=== PATIENT | female | born 1955 | race African-American/Black ===

== ENCOUNTER 2020-10-06 16:00 | Inpatient (IN) | payer OTHER, MEDICARE ==
[~2020-10-06] VITALS: Ht 167.6 cm; Wt 98.4 kg
[~2020-10-06 16:00] MED LIST: ASPI-1497 PO; DONE10TA36 PO; ESCI10TA PO; HYDR25TA PO; LISI-186 PO; METO-411 PO
[2020-10-06] MEDS ORDERED: SODIUM CHLORIDE 0.9% 1,000 ML IV ONE (17:00)
[2020-10-06 17:14] LABS: BASOPHILS % 0.4 % (0.0-2.0); EOSINOPHILS % 1.2 % (0.0-5.0); HEMATOCRIT. 45.4 % (36.0-48.0); HEMOGLOBIN. 14.7 g/dL (12.0-16.0); LYMPHOCYTES % 35.4 % (20.0-50.0); MEAN CORPUSCULAR HEMOGLOBIN 27.1 pg (28.0-32.0); MEAN CORPUSCULAR VOLUME 83.6 fL (81.0-99.0); MEAN PLATELET VOLUME 10.6 fl (7.4-10.4); MONOCYTES % 8.5 % (2.0-8.0); NEUTROPHILS % 54.5 % (40.0-76.0); PLATELET 144 x1000/uL (130-400); RED BLOOD CELL COUNT 5.42 mill/uL (4.2-5.4); RED CELL DISTRIBUTION WIDTH 16.8 % (11.6-14.6)
[2020-10-06 17:17] LABS: CHLORIDE 101 mEq/L (98-107)
[2020-10-06 17:24] LABS: INR 1.1; PROTHROMBIN TIME 11.4 sec (9.6-11.0)
[2020-10-06] MEDS ORDERED: POTASSIUM CHLORIDE INJ 40 MEQ in DEXT 5% WATER 500 ML IV ONE (17:45)
[2020-10-06] MEDS ORDERED: ONDANSETRON HCL 4MG/2ML INJ IV PRN (23:45)
[2020-10-07] MEDS ORDERED: LORAZEPAM 2MG/ML CPJ IV PRN (16:30)
[2020-10-07 16:57] VITALS: BP 150/96
[2020-10-07 20:00] VITALS: BP 139/101
[2020-10-07] MEDS: HALOPERIDOL LACTATE 5MG/ML VIAL IM PRN (20:19)
[2020-10-08 08:00] VITALS: BP 125/80
[2020-10-08 08:28] LABS: BASOPHILS % 0.4 % (0.0-2.0); EOSINOPHILS % 1.1 % (0.0-5.0); HEMATOCRIT. 41.9 % (36.0-48.0); HEMOGLOBIN. 13.7 g/dL (12.0-16.0); LYMPHOCYTES % 20.4 % (20.0-50.0); MEAN CORPUSCULAR HEMOGLOBIN 27.7 pg (28.0-32.0); MEAN CORPUSCULAR VOLUME 84.5 fL (81.0-99.0); MEAN PLATELET VOLUME 10.5 fl (7.4-10.4); MONOCYTES % 12.9 % (2.0-8.0); NEUTROPHILS % 65.2 % (40.0-76.0); PLATELET 122 x1000/uL (130-400); RED BLOOD CELL COUNT 4.96 mill/uL (4.2-5.4)
[2020-10-08 08:50] LABS: CHLORIDE 105 mEq/L (98-107)
[2020-10-08 12:00] VITALS: BP 104/64
[2020-10-08] MEDS: HALOPERIDOL LACTATE 5MG/ML VIAL IM PRN ×2 (13:53→22:25)
[2020-10-08] MEDS ORDERED: POTASSIUM CHLORIDE 20MEQ TABLET SR PO NR (14:30)
[2020-10-08 16:00] VITALS: BP 137/74
[2020-10-08 20:00] VITALS: BP 121/80
[2020-10-09] VITALS: BP 130/85
[2020-10-09 04:00] VITALS: BP 125/80
[2020-10-09 08:00] VITALS: BP 115/86
[2020-10-09] MEDS: HALOPERIDOL LACTATE 5MG/ML VIAL IM PRN (11:15)
[2020-10-09 12:00] VITALS: BP 108/71
[2020-10-09 16:00] VITALS: BP 121/78
[2020-10-09 20:00] VITALS: BP 129/88
[2020-10-10] VITALS: BP 134/86
[2020-10-10 04:00] VITALS: BP 126/82
[2020-10-10 08:00] VITALS: BP 103/73
[2020-10-10 12:00] VITALS: BP 128/88
[2020-10-10 16:00] VITALS: BP 126/81
[2020-10-10 20:00] VITALS: BP 120/81
[2020-10-11] VITALS: BP 122/87
[2020-10-11 04:00] VITALS: BP 136/87
[2020-10-11 08:00] VITALS: BP 110/65
[2020-10-11 12:00] VITALS: BP 118/70
[2020-10-11 16:00] VITALS: BP 114/85
[2020-10-11 20:00] VITALS: BP 145/87
[2020-10-11] MEDS: HALOPERIDOL LACTATE 5MG/ML VIAL IM PRN (20:21)
[2020-10-12] VITALS: BP 139/83
[2020-10-12 04:00] VITALS: BP_SYST 118; BP_SYST 135; BP_DIAS 83; BP_DIAS 90
[2020-10-12 08:00] VITALS: BP 147/90
[2020-10-12 12:00] VITALS: BP 150/90
[2020-10-12 16:00] VITALS: BP 136/76
[2020-10-12 20:00] VITALS: BP 118/83
[2020-10-13] VITALS: BP 145/96
[2020-10-13 04:00] VITALS: BP 131/90
[2020-10-13 08:00] VITALS: BP 125/89
[2020-10-13 12:00] VITALS: BP 129/88
[2020-10-13 16:00] VITALS: BP 117/81
[2020-10-13 17:58] LABS: BASOPHILS % 0.4 % (0.0-2.0); EOSINOPHILS % 1.9 % (0.0-5.0); HEMATOCRIT. 42.2 % (36.0-48.0); HEMOGLOBIN. 13.2 g/dL (12.0-16.0); LYMPHOCYTES % 27.4 % (20.0-50.0); MEAN CORPUSCULAR HEMOGLOBIN 26.6 pg (28.0-32.0); MEAN PLATELET VOLUME 9.8 fl (7.4-10.4); MONOCYTES % 11.4 % (2.0-8.0); NEUTROPHILS % 58.9 % (40.0-76.0); PLATELET 100 x1000/uL (130-400); RED BLOOD CELL COUNT 4.96 mill/uL (4.2-5.4); RED CELL DISTRIBUTION WIDTH 17.1 % (11.6-14.6)
[2020-10-13] MEDS: ACETAMINOPHEN 325MG TABLET PO PRN (18:06)
[2020-10-13 18:14] LABS: CHLORIDE 109 mEq/L (98-107)
[2020-10-13 20:00] VITALS: BP 129/83
[2020-10-13] MEDS: HALOPERIDOL LACTATE 5MG/ML VIAL IM PRN (21:12)
[2020-10-14] VITALS: BP 129/83
[2020-10-14 04:00] VITALS: BP 140/90
[2020-10-14 08:00] VITALS: BP 128/92
[2020-10-14 12:00] VITALS: BP 138/90
[2020-10-14 16:00] VITALS: BP_SYST 117; BP_SYST 135; BP_DIAS 74; BP_DIAS 80
[2020-10-14 20:00] VITALS: BP 122/77
[2020-10-15] VITALS: BP 114/81
[2020-10-15] MEDS: HALOPERIDOL LACTATE 5MG/ML VIAL IM PRN (01:02)
[2020-10-15 04:00] VITALS: BP 118/85
[2020-10-15 08:00] VITALS: BP 122/88
[2020-10-15 12:00] VITALS: BP 133/74
[2020-10-15 16:00] VITALS: BP 115/80
[2020-10-15 20:00] VITALS: BP 129/72
[2020-10-16] VITALS: BP 129/83
[2020-10-16 04:00] VITALS: BP 142/92
[2020-10-16 08:00] VITALS: BP 128/74
[2020-10-16 12:00] VITALS: BP 127/83
[2020-10-16 16:00] VITALS: BP 125/74
[2020-10-16 20:00] VITALS: BP 135/86
[2020-10-16] MEDS: HALOPERIDOL LACTATE 5MG/ML VIAL IM PRN (21:45)
[2020-10-17] VITALS: BP 134/81
[2020-10-17 04:00] VITALS: BP 134/86
[2020-10-17 08:00] VITALS: BP 141/94
[2020-10-17 12:00] VITALS: BP 145/87
[2020-10-17 16:00] VITALS: BP 140/82
[2020-10-17 20:00] VITALS: BP 118/72
[2020-10-18] VITALS: BP 123/69
[2020-10-18 04:00] VITALS: BP 125/78
[2020-10-18] MEDS: ACETAMINOPHEN 325MG TABLET PO PRN (05:39)
[2020-10-18 08:00] VITALS: BP 127/83
[2020-10-18] MEDS ORDERED: ACETAMINOPHEN 325MG TABLET PO PRN (09:45)
[2020-10-18] MEDS: HALOPERIDOL LACTATE 5MG/ML VIAL IM PRN (11:31)
[2020-10-18 12:00] VITALS: BP 124/82
[2020-10-18 15:12] VITALS: BP 124/82
[2020-10-18 16:00] VITALS: BP 107/63
== END 2020-10-18 17:37 | DRG 74 ==
LOC: ER 16:00 → EDBEDREQ 18:27 → EDBEDREQSVC 18:27 → EDBEDREQTM 18:27 → EDBEDREQ 20:40 → MICUSO 21:28 → 6EST 10-07 13:24
PROVIDERS: ADMIT Internal Medicine; ATTEND Internal Medicine
DX: G90.8 Other disorders of autonomic nervous system (principal); E87.6 Hypokalemia; F03.90 Unspecified dementia, unspecified severity, without behavioral disturbance, psychotic disturbance, mood disturbance, and anxiety; Z86.73 Personal history of transient ischemic attack (TIA), and cerebral infarction without residual deficits; I10 Essential (primary) hypertension; E86.0 Dehydration; F17.210 Nicotine dependence, cigarettes, uncomplicated; Z20.822 Contact with and (suspected) exposure to COVID-19; Z79.899 Other long term (current) drug therapy; Z79.82 Long term (current) use of aspirin
CPT/HCPCS: 36415; 71045; 80048; 80053; 84484; 85025; 87426; 93005; 93306; 97110; 97116; 97162; 97166; 97530; 97535; 99285; J1630; J2060; J3480; J7030; J7060